=== PATIENT | male | born 1935 | race Caucasian/White ===

== ENCOUNTER 2020-05-12 10:10 | Outpatient (CLI) | payer MEDICARE, SELFPAY ==
--- NOTE | 2020-05-12 10:20 | US_ITS ---
WS: [id number] RENAL ULTRASOUND URINARY BLADDER ULTRASOUND HISTORY: Ckd STAGE III COMPARISON: None available. TECHNIQUE: 2-D and color Doppler imaging of the kidney submitted. Right kidney: 9.1 cm x 5.1 cm x 4.6 cm. Kidney is low normal size. Mild increased echogenicity. No significant cortical thinning. Left kidney: 10.4 cm x 4.8 cm x 4.6 cm. Normal size kidney with increased echogenicity. There is an exophytic cyst from the inferior kidney m easuring 1.5 x 1.2 x 1.1 cm. Aorta: Normal. Urinary Bladder: Well-distended bladder. No intraluminal filling defect. Prevoid volume 80 cubic cm Post void volume 8 cubic cm US/US renal BI* [id number] IMPRESSION: 1. Mild chronic medical renal disease. No obstruction. 2. Simple cyst inferior pole LEFT kidney. 3. No significant post void residual.
== END 2020-05-12 10:11 | disposition home or self-care (01) ==
LOC: RAD 10:16
PROVIDERS: Visit Provider Family Medicine
DX: N18.3 Chronic kidney disease, stage 3 (moderate) (principal); N28.1 Cyst of kidney, acquired
CPT/HCPCS: 76770

== ENCOUNTER → 2020-08-15 09:27 | Outpatient (BNVA) | payer MEDICARE, SELFPAY | PROVIDERS: Visit Provider Family Medicine | DX: Z11.59 Encounter for screening for other viral diseases (principal) | CPT/HCPCS: 87635 ==

== ENCOUNTER 2020-08-21 18:40 | Emergency (ER) | payer MEDICARE, SELFPAY ==
[2020-08-21] VITALS (8 sets, daily range): BP systolic 118–173; BP diastolic 70–87; PULSE 50–96; RESP 16–18; O2SAT 92–98
[2020-08-21] MEDS: sodium chloride 0.9% 1,000 ML 999 ML IV ×2 (19:25→20:41)
--- NOTE | 2020-08-21 19:58 | W.ED.NAVMDI ---
HPI - Nausea/Vomiting/Diarrhea General: Chief complaint: Nausea/Vomiting/Diarrhea Stated complaint: SICK X 3 WKS, NAUSEA, VOMITING, WEAKNESS Time Seen by Provider: 08/21/20 18:47 Source: patient Mode of arrival: EMS Limitations: no limitations History of Present Illness: HPI Narrative: Mr. Peck is a very nice 84-year-old male who comes in complaining of persistent nausea and vomiting and diarrhea. The patient states that he has had the symptoms for over 10 days and very early on did test positive for the COVID virus. He denies sore throat, cough, shortness of breath or fever. He states he just continues to have severe nausea to the point he does not want to eat or drink anything and is afraid he is getting dehydrated. Patient states he has less energy than normal. He denies chest pain, headache, back pain or abdominal pain. Associated nausea: Yes Associated symtoms: Reports nausea; Denies change in vision, chest pain, diaphoresis, dizziness, dysuria, fatigue, headache(s), malaise, palpitations or syncope Review of Systems Const: Denies: fever(s), chills, body aches, fatigue, malaise or diaphoresis Eyes: Denies: change in vision, blurry vision, photophobia, eye discomfort, eye discharge, eye redness or yellow eyes ENMT: Denies: throat pain, odynophagia, hoarseness, swelling of lips/tongue, ear or mastoid pain, ear discharge, change in hearing or nasal discharge Card: Denies: chest pain, palpitations, irregular heart rhythm, edema, lightheadedness, syncope, pre-syncope, dyspnea on exertion or orthopnea Resp: Denies: dyspnea, productive cough, non-productive cough, wheezing, hemoptysis or chest congestion GI: Reports: nausea, vomiting and diarrhea; Denies: abdominal pain, hematemesis, coffee ground emesis, heartburn, constipation, GI cramping, hematochezia or melena : Denies: flank pain, dysuria, urinary frequency, urinary urgency or hematuria Musc: Denies: neck pain, back pain, extremity pain, extremity swelling, joint pain, joint swelling, joint redness, joint warmth or joint stiffness Skin/Breast: Denies: rash, pruritus, erythema, skin pain or skin tenderness Neuro: Denies: headache(s), numbness in extremities, weakness in extremities, sensory changes, lack of coordination, difficulty walking, dizziness, vertigo, confusion, Slurred speech present or seizure-like activity [place]/Lymph: Denies: easy bruising, easy bleeding, petechiae, purpura or enlarged lymph nodes All/Imm: Denies: urticaria, throat swelling, tongue swelling, facial swelling or acute wheezing PFSH ED PFSH: Medical History (Updated 08/21/20 @ 23:45 by Iris Banuelos) Vertigo Surgical History (Updated 08/21/20 @ 20:00 by Iris Banuelos) S/P cholecystectomy Physical Exam Const: COMMON NORMALS: no acute distress, patient oriented x3, no limitations and alert GENERAL APPEARANCE: cooperative HENMT: COMMON NORMALS: normocephalic, atraumatic, external ears normal, EAC's normal and Normal external nose present HEAD & SCALP: normal to inspection, normocephalic and atraumatic FACE & SINUS: normal facial exam and face symmetric NOSE: Normal external nose present and Normal nares present EXTERNAL EAR: Yes external ears normal EXTERNAL AUDITORY CANAL: EAC's normal MOUTH: Normal oral and palatal mucosa present, lip normal and tongue normal Eye: COMMON NORMALS: Equal, round and reactive pupils present and conjunctivae normal GENERAL EYE: appearance normal, both eyes and all related structures ALIGNMENT: Yes alignment normal PERIORBITAL: periorbital findings normal EYELID: eyelids normal CONJUNCTIVA: Yes conjunctivae normal SCLERA: sclerae normal PUPIL: Yes Equal, round and reactive pupils present Neck/C-Spine: COMMON NORMALS: full ROM, no lymphadenopathy, supple, no meningeal signs and no JVD GENERAL: Yes normal visual inspection and Yes trachea midline Chest: COMMONS NORMALS: normal inspection of the chest and normal palpation of entire chest wall Resp: COMMON NORMALS: normal respiratory effort, No retractions, No use of accessory muscles and clear to auscultation bilaterally EFFORT & INSPECTION: Yes able to speak in complete sentences and Yes symmetric chest movement AUSCULTATION: clear to auscultation bilaterally, no crackles, no rales, no rhonchi and no wheezes Cardio: COMMON NORMALS: no JVD, regular rate, regular rhythm, S1 normal heart sound present and S2 normal heart sound present RATE: regular rate RHYTHM: regular rhythm HEART SOUNDS: S1 normal heart sound present, S2 normal heart sound present, no click, no gallops, no murmurs and no rubs GI: COMMON NORMALS: Soft to palpation and No hepatosplenomegaly present PALPATION: Yes Soft to palpation, No Tenderness to palpation present (GI), No Guarding due to palpation present (GI), No Rigid due to palpation, Yes No hepatosplenomegaly present, No Hernia present, No Palpable mass present and No Pulsatile mass present : COMMON NORMALS: Yes no CVA tenderness BLADDER/KIDNEY EXAM: Yes no CVA tenderness Back/Pelvis: COMMON NORMALS: no CVA tenderness, thoracic and lumbar spine normal to inspection, no thoracic nor lumbar tenderness and thoraco-lumbar ROM normal Extremity: COMMON NORMALS: normal to inspection, full ROM, capillary refill normal, no joint enlargement, no clubbing, cyanosis or edema and no calf tenderness Neuro: COMMON NORMALS: patient oriented x3, CN's II-XII intact bilaterally, moves all extremities, no focal motor deficits and no sensory deficits noted SENSORIUM/ORIENTATION: Yes alert MENINGEAL SIGNS: Yes no meningeal signs SPEECH: speech normal Psych: COMMON NORMALS: mental status grossly normal, Normal thought process present, cooperative, normal affect, speech normal and activity/motor behavior normal SPEECH: Yes normal speech THOUGHT PROCESS: Normal thought process present Skin: COMMON NORMALS: no rashes or lesions noted, turgor normal, no jaundice, no petechiae and no mottling GENERAL SKIN EXAM: no rashes or lesions noted and turgor normal Course ED course: 2131 - Orthostatic Vital Signs-negative for orthostasis. Vital Signs: Vital signs: Vital Signs Pulse Rate 81 08/22/20 01:35 Respiratory Rate 20 H 08/22/20 01:31 Blood Pressure 115/56 08/22/20 01:35 Pulse Oximetry 94 08/22/20 01:31 MDM - Nausea/Vomiting/Diarrhea MDM Narrative: Medical decision making narrative: Mr. Peck is a very nice 84-year-old male who comes in with 3 weeks worth of symptoms. He has tested positive for COVID. Here he is not hypoxic, he has no respiratory distress and his chest x-ray is only mildly suggestive of a covert infection. His urinalysis of greater than 100 red blood cells was worked up with a CT scan which shows a possible mass on his left kidney and possible Paget's disease or metastatic lesion to his left ilium. I reviewed these findings with Dr. Field who agrees the patient can just be seen as an outpatient for definitive work-up. The patient has had 3 L of IV fluids here and is feeling better. His creatinine is 1.6 but this is improved from 2017 when it was 1.7. The patient states he is followed by Dr. Overton for this. I reviewed all tonight's findings with Dr. Overton and he is in agreement the patient can go home and he will have a his office call and check on the patient in the next 1 to 2 days. The patient understands that he can return here if his symptoms worsen at all. Lab Data: Attestation: I reviewed the patient's lab results. Labs: Lab Results 08/21/20 08/21/20 08/21/20 Range/Units 19:22 19:22 19:22 WBC 3.0 L (4.0-10.0) 10^3/ uL RBC 5.10 (4.1-5.3) 10^6/u L Hgb 14.2 (11.7-16.6) g/dL Hct 45.2 (42.0-52.0) % MCV 88.6 (80-94) fL MCH 27.8 L (28.0-34.0) pg MCHC 31.4 (30.0-36.0) g/dL RDW 14.0 (12.1-15.1) % Plt Count 193 (130-400) 10^3/c mm MPV 10.1 (7.4-10.4) fL Neut % (Auto) 71.8 % Lymph % (Auto) 16.6 % [place] % (Auto) 9.3 % Eos % (Auto) 2.0 % Baso % (Auto) 0.3 % Neut # (Auto) 2.16 (1.8-7.7) 10^3/u L Lymph # (Auto) 0.5 L (0.8-4.8) 10^3/u L [place] # (Auto) 0.3 (0.2-0.9) 10^3/u L Eos # (Auto) 0.1 (0.0-0.8) 10^3/u L Baso # (Auto) 0.0 (0.0-0.1) 10^3/u L Nucleated RBC % (a uto) 0 % Nucleated RBCs # 0.0 /100WBC Sodium 137 (136-145) mmol/L Potassium 4.4 (3.5-5.1) mmol/L Chloride 103 (98-107) mmol/L Carbon Dioxide 23 (22-29) mmol/L Anion Gap 15.4 (5-19) BUN 24 H (8-23) mg/dL Creatinine 1.6 H (0.7-1.2) mg/dL GFR Calculation Not Reportable Glucose 97 (65-115) mg/dL Calculated Osmolal ity 288 (285-295) mOsm/k g Lactic Acid 1.1 (0.5-2.2) mmol/L Calcium 8.6 (8.5-10.5) mg/dL Magnesium 2.1 (1.7-2.3) mg/dL Total Bilirubin 0.5 (0.15-1.2) mg/dL AST 34 (0-40) U/L ALT 22 (0-41) U/L Alkaline Phosphata se 137 H (40-130) IU/L Total Protein 6.5 L (6.6-8.7) g/dL Albumin 3.4 L (3.5-5.2) g/dL Globulin 3.1 (1.3-4.6) g/dL Lipase 30 (13-60) U/L Urine Color (Yellow) Urine Appearance (CLEAR) Urine pH (5-7) Ur Specific Gravit y (1.005-1.030) Urine Protein (Negative) Urine Glucose (UA) (Normal) Urine Ketones (Negative) Urine Blood (Negative) Urine Nitrate (Negative) Urine Bilirubin (Negative) Urine Urobilinogen (Negative) mg/dL Ur Leukocyte Shara ase (Negative) Urine RBC (0-2) /hpf Urine WBC (0-5) /hpf Ur Squamous Epith Cells (0-5) /hpf Amorphous Sediment Urine Bacteria (NONE) /hpf 08/21/20 Range/Units 19:28 WBC (4.0-10.0) 10^3/ uL RBC (4.1-5.3) 10^6/u L Hgb (11.7-16.6) g/dL Hct (42.0-52.0) % MCV (80-94) fL MCH (28.0-34.0) pg MCHC (30.0-36.0) g/dL RDW (12.1-15.1) % Plt Count (130-400) 10^3/c mm MPV (7.4-10.4) fL Neut % (Auto) % Lymph % (Auto) % [place] % (Auto) % Eos % (Auto) % Baso % (Auto) % Neut # (Auto) (1.8-7.7) 10^3/u L Lymph # (Auto) (0.8-4.8) 10^3/u L [place] # (Auto) (0.2-0.9) 10^3/u L Eos # (Auto) (0.0-0.8) 10^3/u L Baso # (Auto) (0.0-0.1) 10^3/u L Nucleated RBC % (a uto) % Nucleated RBCs # /100WBC Sodium (136-145) mmol/L Potassium (3.5-5.1) mmol/L Chloride (98-107) mmol/L Carbon Dioxide (22-29) mmol/L Anion Gap (5-19) BUN (8-23) mg/dL Creatinine (0.7-1.2) mg/dL GFR Calculation Glucose (65-115) mg/dL Calculated Osmolal ity (285-295) mOsm/k g Lactic Acid (0.5-2.2) mmol/L Calcium (8.5-10.5) mg/dL Magnesium (1.7-2.3) mg/dL Total Bilirubin (0.15-1.2) mg/dL AST (0-40) U/L ALT (0-41) U/L Alkaline Phosphata se (40-130) IU/L Total Protein (6.6-8.7) g/dL Albumin (3.5-5.2) g/dL Globulin (1.3-4.6) g/dL Lipase (13-60) U/L Urine Color Yellow (Yellow) Urine Appearance Clear (CLEAR) Urine pH 5 (5-7) Ur Specific Gravit y 1.020 (1.005-1.030) Urine Protein 1+ H (Negative) Urine Glucose (UA) Norm (Normal) Urine Ketones 2+ H (Negative) Urine Blood 3+ H (Negative) Urine Nitrate Negative (Negative) Urine Bilirubin Neg (Negative) Urine Urobilinogen 4 H (Negative) mg/dL Ur Leukocyte Shara ase Negative (Negative) Urine RBC >100 H (0-2) /hpf Urine WBC 0-4 H (0-5) /hpf Ur Squamous Epith Cells 0-4 H (0-5) /hpf Amorphous Sediment Not Reportable Urine Bacteria 2+ H (NONE) /hpf Imaging Data^: CXR: Attestation: I personally reviewed and interpreted this imaging study as follows: My impression: No acute cardiopulmonary findings. CT Abd/Pel: Radiologist's impression: [facility] [address] [place] [address] CT Scan Report Signed Patient: Josiah Peck Unit #: [id number] : [id number] Age/Sex: 84 / M ADM Date: 08/21/20 Loc: ER Room/Bed: Attending Dr: Ordering Provider/Ordering MD: Iris Banuelos DO Date of Service: 08/21/20 Procedure(s): CT kidney stone [id number] Accession Number(s): [id number] Report Number: [id number] PROCEDURE INFORMATION: Exam: CT Abdomen And Pelvis Without Contrast Exam date and time: 08/21/2020 9:30 PM Age: 84 years old Clinical indication: Abdominal pain; Generalized; Prior surgery; Surgery date: 6+ months; Surgery type: Gb; Additional info: Flank/abdominal pain TECHNIQUE: Imaging protocol: Computed tomography of the abdomen and pelvis without contrast. Radiation optimization: All CT scans at this facility use at least one of these dose optimization techniques: automated exposure control; mA and/or kV adjustment per patient size (includes targeted exams where dose is matched to clinical indication); or iterative reconstruction. COMPARISON: US renal BI* [id number] 05/12/2020 10:22 AM RADIATION DOSE METRICS: Total DLP (mGy-cm): 1267.7 FINDINGS: Limitations: Examinations performed without intravenous contrast have limited ability to detect many conditions. Lungs: Moderate patchy groundglass opacities at bilateral lung bases. Differential diagnosis includes atelectasis, pulmonary edema, hypersensitivity pneumonitis, and infectious process (especially opportunistic). Liver: Unremarkable. Gallbladder and bile ducts: Status post cholecystectomy. Pancreas: Unremarkable. Spleen: Unremarkable. Adrenals: Unremarkable. Kidneys and ureters: The right kidney is unremarkable. There is a 1.3 cm probable cyst in the left kidney upper pole on series 2, image 67. There is a 0.7 cm probable hyperdense cyst in the left mid kidney on series 2, image 83. There is a 1.4 cm mass exophytic from the left kidney lower pole on series 2, image 87. Density is 35 Hounsfield units. Consider renal mass protocol CT for further evaluation. Stomach and bowel: Diverticulosis of the descending and sigmoid colon without evidence of diverticulitis. Appendix: A normal-appearing appendix is seen in the right lower quadrant. Intraperitoneal space: No free intraperitoneal air identified. No free intraperitoneal fluid identified. Vasculature: No abdominal aortic aneurysm. Lymph nodes: Unremarkable. Urinary bladder: Unremarkable as visualized. Reproductive: Unremarkable as visualized. Bones/joints: Mild degenerative changes of the lower thoracic spine and the lumbar spine. The left ilium is enlarged and heterogeneously sclerotic. Differential diagnosis includes Paget's disease of bone and metastatic disease. Soft tissues: Unremarkable. CT/CT kidney stone [id number] IMPRESSION: 1. Moderate patchy groundglass opacities at bilateral lung bases. Differential diagnosis includes atelectasis, pulmonary edema, hypersensitivity pneumonitis, and infectious process (especially opportunistic). 2. The left ilium is enlarged and heterogeneously sclerotic. Differential diagnosis includes Paget's disease of bone and metastatic disease. 3. There is a 1.4 cm indeterminate mass exophytic from the left kidney lower pole. Consider renal mass protocol CT for further evaluation. Radiation Dose CTDIVOL = (mGy): DLP = 1267.7 (mGy-cm) Dictated By: Arcenio Fajardo MD Signed By: Arcenio Fajardo MD Signed Date/Time: 08/21/202313 DD/ 12 Discharge Plan Discharge Patient Disposition: Home Clinical Impression: Dehydration, COVID-19 virus infection, Left kidney mass Condition: Stable Prescriptions: New Zofran 4 mg tablet 4 mg PO Q6H PRN (Reason: nausea and vomiting) Qty: 20 RF: 0 promethazine 25 mg tablet 25 mg PO Q4H PRN (Reason: nausea and vomiting) Qty: 20 RF: 0 cefdinir 300 mg capsule 300 mg PO Q12H 10 Days Qty: 20 RF: 0 Decadron 6 mg tablet 6 mg PO DAILY Qty: 10 RF: 0 Discharge Orders: Discharge Order (Routine); Ordered 08/21/20 Ordered By: Iris Banuelos Referrals: Harley Field MD [Physician] - 7-10 days Marko Overton MD [Physician] - 1-3 days Discharge Diet: Advance as tolerated Discharge Activity: Increase activity as tolerated Patient Instructions: Hematuria - Male, Viral Pneumonia (ED), Acute Hematuria (ED) Activity Restrictions/Additional Instructions: Please return to the ER immediately for any of the signs or symptoms listed on your discharge instruction sheets, worsening/changing of your symptoms, you are not getting better as quickly as expected, or for ANY other cause or concerns. Alternate the medications I have given you for vomiting but do not take both together. Push fluids such as Gatorade and Powerade or boost or Ensure to keep up your hydration and nutrition. Follow-up with Dr. Overton when possible to recheck your hydration status. If your symptoms worsen in any way please return to the ER for recheck. Be certain to follow-up with Dr. Field once you are recovered for further evaluation of the mass found on your left kidney. Discharge Date/Time: 08/22/20 03:02 Coding Level of Care Code ED Pants Maker for Chg Fwd Exam Comprehensive
[2020-08-21 19:59] LABS: Blood Urine 3+ (Negative); Glucose Urine UA Norm (Normal); Ketones Urine 2+ (Negative); Nitrate Urine Negative (Negative); Protein Urine 1+ (Negative); Urine Appearance Clear (CLEAR); Urine Color Yellow (Yellow); pH Urine 5 (5-7)
[2020-08-21 20:00] LABS: Bilirubin Urine Neg (Negative); Leukocyte Esterase Urine Negative (Negative); Urobilinogen Urine 4 mg/dL (Negative)
[2020-08-21 20:04] LABS: Basophils % 0.3 %; Eosinophils # 0.1 10^3/uL (0.0-0.8); Hematocrit 45.2 % (42.0-52.0); Hemoglobin 14.2 g/dL (11.7-16.6); Lymphocytes # 0.5 10^3/uL (0.8-4.8); Lymphocytes % 16.6 %; Mean Corpuscular HGB Conc 31.4 g/dL (30.0-36.0); Mean Corpuscular Hemoglobin 27.8 pg (28.0-34.0); Mean Corpuscular Volume 88.6 fL (80-94); Mean Platelet Volume 10.1 fL (7.4-10.4); Monocytes # 0.3 10^3/uL (0.2-0.9); Monocytes % 9.3 %; Neutrophils # 2.16 10^3/uL (1.8-7.7); Neutrophils % 71.8 %; Nucleated Red Blood Cells % 0 %; Platelet Count 193 10^3/cmm (130-400)
[2020-08-21 20:05] LABS: Add Urine Culture? Yes; Bacteria Urine 2+ /hpf; RBC Urine >100 /hpf (0-2); Squamous Epithelial Cell Urine 0-4 /hpf (0-5); WBC Urine 0-4 /hpf (0-5)
[2020-08-21 20:21] LABS: Alanine Aminotransferase 22 U/L (0-41); Albumin Level 3.4 g/dL (3.5-5.2); Alkaline Phosphatase 137 IU/L (40-130); Anion Gap 15.4 (5-19); Aspartate Amino Transferase 34 U/L (0-40); Blood Urea Nitrogen 24 mg/dL (8-23); Calcium 8.6 mg/dL (8.5-10.5); Carbon Dioxide 23 mmol/L (22-29); Chloride 103 mmol/L (98-107); Globulin 3.1 g/dL (1.3-4.6); Glucose 97 mg/dL (65-115); Lipase 30 U/L (13-60); Magnesium 2.1 mg/dL (1.7-2.3); Osmolality Calculated 288 mOsm/kg (285-295); Potassium 4.4 mmol/L (3.5-5.1); Sodium 137 mmol/L (136-145); Total Bilirubin 0.5 mg/dL (0.15-1.2); Total Protein 6.5 g/dL (6.6-8.7)
[2020-08-21 20:25] LABS: Lactic Sepsis W/Reflex 1.1 mmol/L (0.5-2.2)
[2020-08-21] MEDS: ondansetron 2 mg/ML SDV 2 mL 4 MG IVP ×2 (20:54→23:39)
--- NOTE | 2020-08-21 21:25 | CTR_ITS ---
PROCEDURE INFORMATION: Exam: CT Abdomen And Pelvis Without Contrast Exam date and time: 08/21/2020 9:30 PM Age: 84 years old Clinical indication: Abdominal pain; Generalized; Prior surgery; Surgery date: 6+ months; Surgery type: Gb; Additional info: Flank/abdominal pain TECHNIQUE: Imaging protocol: Computed tomography of the abdomen and pelvis without contrast. Radiation optimization: All CT scans at this facility use at least one of these dose optimization techniques: automated exposure control; mA and/or kV adjustment per patient size (includes targeted exams where dose is matched to clinical indication); or iterative reconstruction. COMPARISON: US renal BI* [id number] 05/12/2020 10:22 AM RADIATION DOSE METRICS: Total DLP (mGy-cm): 1267.7 FINDINGS: Limitations: Examinations performed without intravenous contrast have limited ability to detect many conditions. Lungs: Moderate patchy groundglass opacities at bilateral lung bases. Differential diagnosis includes atelectasis, pulmonary edema, hypersensitivity pneumonitis, and infectious process (especially opportunistic). Liver: Unremarkable. Gallbladder and bile ducts: Status post cholecystectomy. Pancreas: Unremarkable. Spleen: Unremarkable. Adrenals: Unremarkable. Kidneys and ureters: The right kidney is unremarkable. There is a 1.3 cm probable cyst in the left kidney upper pole on series 2, image 67. There is a 0.7 cm probable hyperdense cyst in the left mid kidney on series 2, image 83. There is a 1.4 cm mass exophytic from the left kidney lower pole on series 2, image 87. Density is 35 Hounsfield units. Consider renal mass protocol CT for further evaluation. Stomach and bowel: Diverticulosis of the descending and sigmoid colon without evidence of diverticulitis. Appendix: A normal-appearing appendix is seen in the right lower quadrant. Intraperitoneal space: No free intraperitoneal air identified. No free intraperitoneal fluid identified. Vasculature: No abdominal aortic aneurysm. Lymph nodes: Unremarkable. Urinary bladder: Unremarkable as visualized. Reproductive: Unremarkable as visualized. Bones/joints: Mild degenerative changes of the lower thoracic spine and the lumbar spine. The left ilium is enlarged and heterogeneously sclerotic. Differential diagnosis includes Paget's disease of bone and metastatic disease. Soft tissues: Unremarkable. CT/CT kidney stone [id number] IMPRESSION: 1. Moderate patchy groundglass opacities at bilateral lung bases. Differential diagnosis includes atelectasis, pulmonary edema, hypersensitivity pneumonitis, and infectious process (especially opportunistic). 2. The left ilium is enlarged and heterogeneously sclerotic. Differential diagnosis includes Paget's disease of bone and metastatic disease. 3. There is a 1.4 cm indeterminate mass exophytic from the left kidney lower pole. Consider renal mass protocol CT for further evaluation. Radiation Dose CTDIVOL = (mGy): DLP = 1267.7 (mGy-cm)
[2020-08-21] MEDS: lactated ringers 1,000 ML 999 ML IV (21:57)
--- NOTE | 2020-08-21 23:06 | PC.NURSE ---
Pt given food per MD request, PO test.
--- NOTE | 2020-08-21 23:32 | PC.NURSE ---
Pt was only able to tolerate 1/4 of the sandwich before feeling nauseous, notified, Airam ordered. stated the pt needs to try and eat the whole sandwich.
[2020-08-22] MEDS: dexamethasone 10 mg/mL INJ IVP (01:29)
[2020-08-22 01:31] VITALS: BP 129/75; PULSE 101; RESP 20; O2SAT 94
[2020-08-22 01:35] VITALS: BP 115/56; BP 120/67; BP 129/75; PULSE 101; PULSE 81; PULSE 95
--- NOTE | 2020-08-22 01:57 | DCPLANNER ---
Pt needs a ride home as his has the same thing he does and won't be able to get here until much later. He agrees to the 30-35.00 charge from [facility] that was quoted by Jil. She will call when delivery driver/supervisor is en-route.
--- NOTE | 2020-08-22 12:59 | DCPLANNER ---
job analysis manager had message to schedule a follow up appointment for patient with Dr. Field. job analysis manager called the office of Dr. Field, spoke with Zahida, gave clinic patients information. job analysis manager was told that patients information would be printed and reviewed. Clinic will call patient with appointment information.
--- NOTE | 2020-08-29 12:53 | DCPLANNER ---
Patient has a follow up appointment scheduled for Friday, October 02, 2020 at 9:[address] Field. Clinic will call patient with appointment information.
--- NOTE | 2020-10-11 12:30 | DCPLANNER ---
Patient had a follow up appointment scheduled for 10.02.[address] Field - patient did attend appointment.
== END 2020-08-22 03:02 | disposition home or self-care (01) ==
PROVIDERS: Emergency Provider Emergency Medicine
DX: U07.1 COVID-19 (principal); N28.89 Other specified disorders of kidney and ureter; E86.0 Dehydration
CPT/HCPCS: 12345; 74176; 80053; 81001; 83605; 83690; 83735; 85025; 87086; 96361; 96365; 96375; 96376; 99284; J1100; J2405; J7030

== ENCOUNTER → 2020-10-02 08:25 | Outpatient (BNVA) | payer MEDICARE, SELFPAY | PROVIDERS: PCP Family Medicine; Referring Provider Emergency Medicine; Visit Provider Urology | DX: N28.89 Other specified disorders of kidney and ureter (principal); Q61.9 Cystic kidney disease, unspecified | CPT/HCPCS: 81003 ==

== ENCOUNTER 2021-01-10 11:20 | Outpatient (RCR) | payer MEDICARE, SELFPAY | END 2021-02-07 23:59 | disposition home or self-care (01) | LOC: SPT 11:20 | PROVIDERS: PCP Family Medicine; Referring Provider Family Medicine; Visit Provider Family Medicine | DX: R42 Dizziness and giddiness (principal) | CPT/HCPCS: 95992; 97162 ==

== ENCOUNTER → 2022-11-27 10:40 | Outpatient (BNVA) | payer MEDICARE, SELFPAY | PROVIDERS: PCP Family Medicine; Visit Provider Family Medicine | DX: R19.7 Diarrhea, unspecified (principal); E53.8 Deficiency of other specified B group vitamins; Z51.81 Encounter for therapeutic drug level monitoring; E78.5 Hyperlipidemia, unspecified; Z13.220 Encounter for screening for lipoid disorders; R25.2 Cramp and spasm; Z90.49 Acquired absence of other specified parts of digestive tract; Q61.9 Cystic kidney disease, unspecified | CPT/HCPCS: 80053; 80061; 82607; 83735; 85025; 87493; 87506 ==

== ENCOUNTER 2023-07-20 10:12 | Emergency (ER) | payer MEDICARE, SELFPAY ==
--- NOTE | 2023-07-20 10:14 | XRR_ITS ---
PROCEDURE INFORMATION: Exam: XR Left Knee Exam date and time: 07/20/2023 10:56 AM Age: 87 years old Clinical indication: Pain; Knee; Left TECHNIQUE: Imaging protocol: Radiologic exam of the left knee. Views: 3 views. COMPARISON: No relevant prior studies available. FINDINGS: Bones/joints: Hypertrophic spurring of the patella. Soft tissues: Mild prepatellar soft tissue swelling. XR/XR knee LT 3V* [id number] IMPRESSION: Degenerative change of the patella. Prepatellar soft tissue swelling. No evidence of fracture
[2023-07-20 10:25] VITALS: BP 151/84; PULSE 63; RESP 14; TEMP 36.7; O2SAT 98
--- NOTE | 2023-07-20 10:44 | W.ED.EXTPRO ---
HPI - Extremity Problem General: Chief complaint: Extremity Injury, Lower Stated complaint: left knee pain Time Seen by Provider: 07/20/23 10:21 History of Present Illness: Patient is an 87-year-old man that presents to the emergency department with left knee swelling, pain, redness and warmth. Onset gradually over the last month. Patient states 1 month ago he injured his knee working in the yard and had a small cut. It scabbed over and started to heal. About a week later he noted increased swelling in the knee and then redness. The symptoms seem to wax and wane. Today, he has left knee swelling and that swelling extends into the distal aspect of the leg. There is erythema and warmth. Evidence of previous injury to the soft tissue that has some degree of healing but still has tissue sloughing. Patient has pain with weightbearing, straight leg raise, and flexion This is a [place] knee Associated symptoms: Deny chest pain, fever(s) or rash Review of Systems General: Reports: 10 or more systems reviewed and unremarkable except in HPI and below Const: Reports: chills (For the last 2 nights) and fatigue; Denies: fever(s), change in appetite, change in weight or malaise Eyes: Denies: change in vision, eye discomfort, eye discharge or eye redness ENMT: Denies: throat pain, enlarged tonsils, odynophagia, hoarseness, ear or mastoid pain, ear discharge, change in hearing, tinnitus, nasal discharge, nasal congestion, post nasal drip or sinus pain Card: Denies: chest pain, palpitations, irregular heart rhythm, edema, dyspnea on exertion, orthopnea or leg pain with exertion Resp: Denies: dyspnea, productive cough, non-productive cough, wheezing, stridor or chest congestion GI: Denies: abdominal pain, nausea, vomiting, dysphagia, diarrhea, constipation, bloating, GI cramping or hematochezia : Denies: flank pain, dysuria, urinary frequency, urinary urgency, urinary hesitancy, oliguria or hematuria Musc: Denies: neck pain, back pain, extremity pain, joint pain, joint swelling, joint redness, joint warmth or muscle weakness Skin/Breast: Denies: rash, pruritus, erythema, photosensitivity or new lesions Neuro: Denies: headache(s), numbness in extremities, weakness in extremities, sensory changes, lack of coordination, difficulty walking, frequent falls, dizziness, confusion, Slurred speech present, difficulty communicating thoughts, seizure-like activity or involuntary movements Endo: Denies: polyuria, polydipsia or tired all the time [place]/Lymph: Denies: easy bruising or easy bleeding PFS ED PFSH: Medical History (Updated 07/20/23 @ 12:21 by OSWALDO Martinez) Vertigo Surgical History (Updated 08/21/20 @ 20:00 by Iris Banuelos) S/P cholecystectomy Family History (Updated 10/02/20 @ 08:31 by Dominique Mata LPN) Father , at age 89 No problems noted. Mother , at age 93 Alzheimer's dementia Social History (Updated 10/02/20 @ 08:32 by Dominique Mata LPN) Smoking and tobacco status: former smoker Alcohol intake: never Marital status: Current occupational status: retired Physical Exam Const: COMMON NORMALS: no acute distress, patient oriented x3 and alert GENERAL APPEARANCE: cooperative ORIENTATION/CONSCIOUSNESS: Yes awake, Yes oriented to person, Yes oriented to place and Yes oriented to time HENMT: COMMON NORMALS: normocephalic and atraumatic HEAD & SCALP: normocephalic and atraumatic FACE & SINUS: normal facial exam MOUTH: Normal oral and palatal mucosa present THROAT: posterior oropharynx normal Eye: COMMON NORMALS: Equal, round and reactive pupils present, EOMs intact bilaterally, conjunctivae normal and no scleral icterus GENERAL EYE: appearance normal, both eyes and all related structures ALIGNMENT: Yes alignment normal PERIORBITAL: periorbital findings normal CONJUNCTIVA: Yes conjunctivae normal PUPIL: Yes Equal, round and reactive pupils present Neck/C-Spine: COMMON NORMALS: full ROM GENERAL: Yes normal visual inspection Lymph: LYMPHATIC: no lymphadenopathy noted Chest: COMMONS NORMALS: normal inspection of the chest Breast/axilla inspection: Yes no chest deformity, asymmetry, normal contours, no nodules, masses, tenderness Resp: COMMON NORMALS: normal respiratory effort, No retractions, No use of accessory muscles and clear to auscultation bilaterally EFFORT & INSPECTION: Yes able to speak in complete sentences and Yes symmetric chest movement AUSCULTATION: clear to auscultation bilaterally Cardio: COMMON NORMALS: regular rate, regular rhythm and Peripheral pulses 2+ throughout RATE: regular rate RHYTHM: regular rhythm PERIPHERAL PULSES: Peripheral pulses 2+ throughout GI: COMMON NORMALS: Normal to inspection, nondistended, normoactive bowel sounds present, Soft to palpation, non-tender and No hepatosplenomegaly present INSPECTION: Yes normal to inspection AUSCULTATION: Yes normoactive bowel sounds PALPATION: Yes Soft to palpation and Yes No hepatosplenomegaly present RECTAL EXAM: Yes deferred Extremity: COMMON NORMALS: normal to inspection GENERAL: Yes normal exam except as noted OTHER: Left lower extremity: Skin is clean dry and intact. He has edema, erythema, warmth noted to anterior left knee There is an area that is apparently the original injury from a month ago it is mostly healed but there is skin sloughing circumferentially Patient has some knee flexion severely limited due to pain. Patient is able to do a straight leg raise but causes quite a bit of pain He is able to dorsiflex plantarflex the foot Is able to dorsiflex great toe Sensation intact to light touch at medial, lateral, dorsal, plantar surface of the foot and first webspace DP pulses palpable and cap refills less than 3 seconds EXTREMITY IMAGE (FRONT): 1. Erythema, warmth, swelling 2. Swelling extends into the leg Neuro: COMMON NORMALS: patient oriented x3 SENSORIUM/ORIENTATION: Yes alert, Yes oriented to person, Yes oriented to place and Yes oriented to time CRANIAL NERVES: Yes CN normal except as noted Psych: COMMON NORMALS: mental status grossly normal, Normal thought process present, cooperative, activity/motor behavior normal, denies homicidal ideation and denies suicidal ideation THOUGHT PROCESS: Normal thought process present Skin: COMMON NORMALS: no rashes or lesions noted, no wounds and turgor normal GENERAL SKIN EXAM: no rashes or lesions noted and turgor normal Course Vital Signs: Vital signs: Vital Signs Temperature 98.1 F 07/20/23 10:25 Pulse Rate 63 07/20/23 10:25 Respiratory Rate 14 07/20/23 10:25 Blood Pressure 151/84 07/20/23 10:25 Pulse Oximetry 98 07/20/23 10:25 Oxygen Delivery Me thod Room Air 07/20/23 10:25 MDM - Extremity (Nontraumatic) Medical Decision Making Patient was evaluated in the emergency department for left knee swelling and pain. Differential diagnosis include contusion, effusion, fracture, fracture dislocation, septic arthritis, cellulitis Due to the nature of the trauma 1 month ago, healing wound that has started to slough, and the warmth that extends around the knee and distally, it is more likely that this is septic arthritis Patient is reporting chilling through the night for 2 nights but denies fevers. Patient underwent XR imaging of the left knee which reveals degenerative changes and prepatellar soft tissue swelling. He also underwent laboratory evaluation which reveals no leukocytosis, anemias, electrolyte abnormalities. Patient has a normal CRP but mildly elevated ESR (24) I think with the finding of patellar swelling, no joint effusion, ongoing to treat him for cellulitis. Of note, his creatinine is elevated but this is unchanged from November. I have encouraged him to drink plenty of fluids at home and follow-up with his primary care doctor. He does have blood cultures pending should anything change. Patient was treated here in the emergency department with cephalexin. He will go home with a prescription. Lab Data 07/20/23 10:50 07/20/23 10:50 Radiology Impressions Knee X-Ray 07/20/23 10:14 IMPRESSION: Degenerative change of the patella. Prepatellar soft tissue swelling. No evidence of fracture Laboratory Results WBC 6.68 10^3/uL (3.29-11.43) 07/20/23 10:50 RBC 4.61 10^6/uL (3.85-5.65) 07/20/23 10:50 Hgb 13.10 g/dL (11.27-16.99) 07/20/23 10:50 Hct 42.4 % (37-53) 07/20/23 10:50 MCV 92.0 fl (82-101) 07/20/23 10:50 MCH 28.4 pg (27-33) 07/20/23 10:50 MCHC 30.9 g/dL (30-55) 07/20/23 10:50 RDW 13.3 % (12.1-15.1) 07/20/23 10:50 Plt Count 298 10^3/cmm (157-399) 07/20/23 10:50 MPV 8.6 fL (7.4-10.4) 07/20/23 10:50 Neut % (Auto) 73.0 % 07/20/23 10:50 Lymph % (Auto) 14.5 % 07/20/23 10:50 [place] % (Auto) 6.7 % 07/20/23 10:50 Eos % (Auto) 4.3 % 07/20/23 10:50 Baso % (Auto) 0.9 % 07/20/23 10:50 Neut # (Auto) 4.87 10^3/uL (1.8-7.7) 07/20/23 10:50 Lymph # (Auto) 1.0 10^3/uL (0.8-4.8) 07/20/23 10:50 [place] # (Auto) 0.5 10^3/uL (0.2-0.9) 07/20/23 10:50 Eos # (Auto) 0.3 10^3/uL (0.0-0.8) 07/20/23 10:50 Baso # (Auto) 0.1 10^3/uL (0.0-0.1) 07/20/23 10:50 Nucleated RBC % (auto) 0 % 07/20/23 10:50 Nucleated RBCs # 0.0 /100WBC 07/20/23 10:50 ESR 24 mm/hr (0-10) H 07/20/23 10:50 Sodium 138 mmol/L (136-145) 07/20/23 10:50 Potassium 4.7 mmol/L (3.5-5.1) 07/20/23 10:50 Chloride 105 mmol/L (98-107) 07/20/23 10:50 Carbon Dioxide 22 mmol/L (22-29) 07/20/23 10:50 Anion Gap 15.7 (5-19) 07/20/23 10:50 BUN 25 mg/dL (8-23) H 07/20/23 10:50 Creatinine 2.1 mg/dL (0.7-1.2) H 07/20/23 10:50 GFR Calculation Not Reportable 07/20/23 10:50 Glucose 87 mg/dL (65-115) 07/20/23 10:50 Calculated Osmolality 290 mOsm/kg (285-295) 07/20/23 10:50 Calcium 8.9 mg/dL (8.5-10.5) 07/20/23 10:50 C-Reactive Protein 4.3 mg/L (0.0-4.9) 07/20/23 10:50 Discharge Plan Discharge Patient Disposition: Home Clinical Impression: Cellulitis Condition: Stable Prescriptions: New cephalexin 500 mg capsule 500 mg PO Q6H 7 Days Qty: 28 0RF acetaminophen 500 mg capsule 500 mg PO QID PRN (Reason: pain) 7 Days Qty: 30 0RF No Action naproxen sodium [Aleve] 220 mg tablet 220 mg PO BID PRN (Reason: Pain) lisinopril 5 mg tablet 5 mg PO DAILY Qty: 30 9RF Discharge Orders: Discharge ED (Routine); Ordered 07/20/23 Ordered By: Tami Knutson Referrals: Marko Overton MD [Primary Care Provider] - Discharge Diet: Advance as tolerated Discharge Activity: Resume usual activity Patient Instructions: Cellulitis (ED), Pain Management Activity Restrictions/Additional Instructions: Please take your antibiotics and the acetaminophen as prescribed Please return to the emergency department for new concerning or worsening symptoms Please follow-up with your primary care doctor regarding your kidney function. Coding Level of Care Code ED [employer] Techn[employer] for [employer]
[2023-07-20 11:09] LABS: Basophils # 0.1 10^3/uL (0.0-0.1); Basophils % 0.9 %; Eosinophils # 0.3 10^3/uL (0.0-0.8); Eosinophils % 4.3 %; Hematocrit 42.4 % (37-53); Lymphocytes % 14.5 %; Mean Corpuscular HGB Conc 30.9 g/dL (30-55); Mean Corpuscular Hemoglobin 28.4 pg (27-33); Mean Platelet Volume 8.6 fL (7.4-10.4); Monocytes # 0.5 10^3/uL (0.2-0.9); Monocytes % 6.7 %; Neutrophils # 4.87 10^3/uL (1.8-7.7); Nucleated Red Blood Cells % 0 %; Platelet Count 298 10^3/cmm (157-399); Red Blood Count 4.61 10^6/uL (3.85-5.65); Red Cell Distribution Width 13.3 % (12.1-15.1); White Blood Count 6.68 10^3/uL (3.29-11.43)
[2023-07-20] MEDS: ketorolac 30 mg/mL INJ 15 MG IVP (11:09)
[2023-07-20 11:26] LABS: Anion Gap 15.7 (5-19); Blood Urea Nitrogen 25 mg/dL (8-23); C Reactive Protein 4.3 mg/L (0.0-4.9); Calcium 8.9 mg/dL (8.5-10.5); Carbon Dioxide 22 mmol/L (22-29); Chloride 105 mmol/L (98-107); Glucose 87 mg/dL (65-115); Osmolality Calculated 290 mOsm/kg (285-295); Potassium 4.7 mmol/L (3.5-5.1); Sodium 138 mmol/L (136-145)
[2023-07-20 11:28] LABS: Erythrocyte Sedimentation Rate 24 mm/hr (0-10)
[2023-07-20] MEDS: cephALEXin 500 mg Capsule PO (12:21)
[2023-07-20 12:41] VITALS: BP 134/82; PULSE 63; RESP 14; TEMP 36.7; O2SAT 98
== END 2023-07-20 12:42 | disposition home or self-care (01) ==
PROVIDERS: Emergency Provider Nurse Practitioner; PCP Family Medicine
DX: L03.116 Cellulitis of left lower limb (principal)
CPT/HCPCS: 36415; 73562; 80048; 85025; 85651; 86140; 87040; 96374; 99284; J1885

== ENCOUNTER → 2023-10-14 13:54 | Outpatient (BNVA) | payer MEDICARE, SELFPAY | PROVIDERS: PCP Family Medicine; Visit Provider Family Medicine | DX: Z51.81 Encounter for therapeutic drug level monitoring (principal); R42 Dizziness and giddiness; N18.9 Chronic kidney disease, unspecified | CPT/HCPCS: 80053; 83735; 85025; 85651 ==